=== PATIENT | male | born 1985 | race Caucasian/White ===

== ENCOUNTER 2016-08-12 21:45 | Inpatient (IN) | payer OTHER ==
[~2016-08-12] VITALS: Ht 180.3 cm; Wt 83.7 kg
[~2016-08-12 21:45] MED LIST: NAPROSYN500 MG PO; RISPERDAL2 MG PO
[2016-08-12 23:01] LABS: HEMATOCRIT 48.1 % (38.0-50.0); MCH 31.9 PG (29.0-34.0); MCHC 35.3 G/DL (30.0-36.0); MCV 90.2 FL (86-99); MEAN PLAT.VOLUME 10.3 uM^3 (9.0-12.4); PLATELET COUNT 283 K/uL (156-360); RBC DIS.WIDTH-CV 12.4 % (11.8-14.6); RBC DIS.WIDTH-SD 40.6 % (39-53); RED BLOOD COUNT 5.33 M/uL (4.00-5.50); WHITE BLOOD COUNT 15.7 K/uL (4.1-10.2)
[2016-08-12 23:22] LABS: CHLORIDE 104 mEq/L (99-109); SODIUM 138 mEq/L (136-147)
[2016-08-12 23:24] LABS: GLUCOSE 98 mg/dL (70-99)
[2016-08-12 23:25] LABS: ANION GAP 10 MEQ/L (2-14)
[2016-08-12 23:27] LABS: SERUM ETHYL ALCOHOL < 10 mg/dL
[2016-08-12 23:28] LABS: GFR ESTIMATE (CALCULATED) > 59 mL/min/
[2016-08-12 23:29] LABS: UREA NITROGEN (BUN) 16 mg/dL (9-23)
[2016-08-13 02:28] LABS: AMPHETAMINE NEGATIVE (500 ng/mL); BARBITURATES NEGATIVE (200 ng/mL); BENZODIAZEPINES NEGATIVE (150 ng/mL); COCAINE NEGATIVE (150 ng/mL); INTERNAL CONTROLS VALID? YES; METHADONE NEGATIVE (200 ng/mL); METHAMPHETAMINE NEGATIVE (500 ng/mL); OPIATES (MORPHINE) NEGATIVE (100 ng/mL); OXYCODONE NEGATIVE (100 ng/mL); PHENCYCLIDINE NEGATIVE (25 ng/mL); PROPOXYPHENE NEGATIVE (300 ng/mL); THC CANNABINOIDS NEGATIVE (50 ng/mL); TRICYCLIC ANTIDEPRESSANTS NEGATIVE (300 ng/mL)
[2016-08-13 02:56] VITALS: BP 134/81
[2016-08-13 04:27] VITALS: BP 134/81
[2016-08-13 07:51] VITALS: BP 137/76
[2016-08-13 15:29] VITALS: BP 134/83
[2016-08-14 07:46] VITALS: BP 111/84
[2016-08-14 15:10] VITALS: BP 151/87
[2016-08-15 07:42] VITALS: BP 130/83
[2016-08-15 15:29] VITALS: BP 130/74
[2016-08-16 07:39] VITALS: BP 138/84
[2016-08-16 15:15] VITALS: BP 143/73
[2016-08-17 07:25] VITALS: BP 146/84
[2016-08-17 15:22] VITALS: BP 149/72
[2016-08-18 07:43] VITALS: BP 147/69
[2016-08-18 15:24] VITALS: BP 139/82
[2016-08-19 07:56] VITALS: BP 140/73
[2016-08-19 15:41] VITALS: BP 146/72
[2016-08-20 07:48] VITALS: BP 142/85
[2016-08-20 15:10] VITALS: BP 126/82
[2016-08-21 07:40] VITALS: BP 127/82
[2016-08-21 16:09] VITALS: BP 145/71
[2016-08-21 21:12] VITALS: BP 133/75
[2016-08-22 07:09] VITALS: BP 131/80
[2016-08-22 15:43] VITALS: BP 137/65
[2016-08-23] MEDS ORDERED: ZOLPIDEM TARTRAT5 MG PO (09:04)
[2016-08-23] MEDS ORDERED: OLANZAPINE10 MG PO (09:04)
[2016-08-23 09:09] VITALS: BP 130/77
== END 2016-08-23 10:57 | disposition home or self-care (01) | DRG 885 ==
LOC: EME 21:45 → 1WEST 08-13 00:14 → EDOF 08-13 00:14 → 1WEST 08-13 02:49
DX: F20.0 Paranoid schizophrenia (principal); F33.9 Major depressive disorder, recurrent, unspecified; F29 Unspecified psychosis not due to a substance or known physiological condition; F41.9 Anxiety disorder, unspecified; F17.210 Nicotine dependence, cigarettes, uncomplicated; Z91.128 Patient's intentional underdosing of medication regimen for other reason; R45.1 Restlessness and agitation; F24 Shared psychotic disorder
CPT/HCPCS: 80048; 85027; 90837; 97150 GO; 97165 GO; 97530 GO; 99281; 99285; G0480